=== PATIENT | female | born 1950 ===

== ENCOUNTER 2018-09-10 07:32 | Day surgery (SDC) | payer OTHER ==
[2018-09-10 08:04] VITALS: BMI 31.7
[2018-09-10 08:15] VITALS: TEMP 97.7
[2018-09-10] MEDS ORDERED: Lactated Ringer's 500 ML IV ONE (08:15)
[2018-09-10 12:11] VITALS: BP 115/60; PULSE 64; RESP 18; O2SAT 97
== END 2018-09-10 10:00 | disposition home or self-care (01) ==
LOC: H.ENDO 07:32
PROVIDERS: ATTEND Internal Medicine Gastroenterology
DX: K44.9 Diaphragmatic hernia without obstruction or gangrene (principal); K21.0 Gastro-esophageal reflux disease with esophagitis; I10 Essential (primary) hypertension; K29.40 Chronic atrophic gastritis without bleeding; R10.13 Epigastric pain; K29.50 Unspecified chronic gastritis without bleeding
CPT/HCPCS: 43239; 88305; J7120